=== PATIENT | female | born 1995 | race African-American/Black ===

== ENCOUNTER 2017-01-15 12:28 | Emergency (ER) | payer OTHER ==
[~2017-01-15] VITALS: Ht 162.6 cm; Wt 84.1 kg
[~2017-01-15 12:28] MED LIST: BACTRIM DS 8001 TAB PO; SYNTHROID0.137 MG
[2017-01-15 12:38] VITALS: BP 123/66; TEMP 99.8
[2017-01-15] MEDS ORDERED: MIRENA52 MG (12:40)
[2017-01-15] MEDS ORDERED: AMOXICILLIN 50500 MG PO ×2 (13:56→14:42)
[2017-01-15 14:00] VITALS: PULSE 86
== END 2017-01-15 14:05 | disposition home or self-care (01) ==
LOC: COL.ER 12:28
DX: J02.0 Streptococcal pharyngitis (principal); Z98.890 Other specified postprocedural states

== ENCOUNTER → 2017-04-18 | Outpatient (CLI) | payer BC ==
[~2017-04-18] MED LIST changes: +AMOXICILLIN 50500 MG PO; +MIRENA52 MG
[2017-04-18 14:16] LABS: BASO # 0.1 (0.0-0.2); BASO % 0.5 % (0.0-2.0); EOS # 0.3 (0.0-0.7); EOS % 2.7 % (0-4.0); GRAN % 73.3 % (42.2-75.2); HEMATOCRIT 43.5 % (37.0-47.0); HEMOGLOBIN 14.4 g/dl (12.5-16.0); LYMPH # 1.8 (1.2-3.4); LYMPH % 16.6 % (20.0-51.0); MEAN CELL VOLUME 99 fl (80.0-100.0); MEAN CORPUSCULAR HEMOGLOBIN 33 pg (27.0-31.0); MEAN CORPUSCULAR HGB CONC 33 g/dl (33.0-37.0); MEAN PLATELET VOLUME 10.8 fl (7.4-10.4); MONO # 0.7 (0.1-0.6); MONO % 6.4 % (1.7-9.3); PLATELET COUNT 294 K/mm3 (130-400); RED BLOOD COUNT 4.41 M/mm3 (4.10-5.30)
[2017-04-18 14:28] LABS: BILIRUBIN,TOTAL 0.9 mg/dL (0.0-1.0); CHOLESTEROL RISK RATIO 4.1; CREATININE, serum 0.79 mg/dL (0.52-1.25); TOTAL PROTEIN 7.3 gm/dL (6.4-8.2)
[2017-04-18 14:56] LABS: TSH w REFLEX 14.8 uIU/mL (0.465-4.680)
== END ==
LOC: COL.LAB 11:21
PROVIDERS: Family Medicine
DX: Z00.00 Encounter for general adult medical examination without abnormal findings (principal); L68.0 Hirsutism; E03.9 Hypothyroidism, unspecified

== ENCOUNTER → 2017-06-25 | Outpatient (CLI) | payer BC ==
[2017-06-25 18:29] LABS: TSH w REFLEX 16.6 uIU/mL (0.465-4.680)
== END ==
LOC: COL.LAB 16:47
PROVIDERS: Family Medicine
DX: E03.9 Hypothyroidism, unspecified (principal)

== ENCOUNTER → 2017-08-08 | Outpatient (CLI) | payer BC ==
[2017-08-08 19:17] LABS: ALBUMIN 4.7 gm/dL (3.5-5.0); BILIRUBIN,TOTAL 0.4 mg/dL (0.0-1.0); CALCIUM 9.8 mg/dL (8.4-10.2); CREATININE, serum 0.78 mg/dL (0.52-1.25); POTASSIUM 4.1 mmol/L (3.4-5.0); TOTAL PROTEIN 8.2 gm/dL (6.4-8.2)
== END ==
LOC: COL.LAB 18:21
PROVIDERS: Family Medicine
DX: R74.0 Nonspecific elevation of levels of transaminase and lactic acid dehydrogenase [LDH] (principal); L68.0 Hirsutism; Z88.1 Allergy status to other antibiotic agents

== ENCOUNTER → 2017-09-05 | Outpatient (CLI) | payer BC | LOC: COL.LAB 15:57 | DX: E03.9 Hypothyroidism, unspecified (principal); Z88.1 Allergy status to other antibiotic agents ==